=== PATIENT | female | born 1950 | race Caucasian/White ===

== ENCOUNTER 2024-02-03 10:56 | Emergency (ER) | payer MEDICARE, OTHER ==
[~2024-02-03] VITALS: Ht 165.1 cm; Wt 150.0 kg
[2024-02-03 11:03] VITALS: TEMP 97.4
[2024-02-03 14:19] VITALS: BP 128/51; PULSE 53
== END 2024-02-03 14:22 | disposition home or self-care (01) ==
LOC: COL.ER 10:56
DX: S63.502A Unspecified sprain of left wrist, initial encounter (principal); S70.02XA Contusion of left hip, initial encounter; Z87.891 Personal history of nicotine dependence; W01.198A Fall on same level from slipping, tripping and stumbling with subsequent striking against other object, initial encounter

== ENCOUNTER → 2024-03-17 | Outpatient (CLI) | payer MEDICARE, OTHER | LOC: COL.RAD 09:18 | DX: M47.27 Other spondylosis with radiculopathy, lumbosacral region (principal) ==